=== PATIENT | female | born 1995 | race Caucasian/White ===

== ENCOUNTER 2017-12-11 16:31 | Emergency (ER) | payer SELFPAY ==
[~2017-12-11] VITALS: Ht 170.2 cm; Wt 62.0 kg
[~2017-12-11 16:31] MED LIST: MMW SWISH-SWAL
[2017-12-11 16:35] VITALS: BP 133/62; PULSE 78; RESP 18; TEMP 98.8; O2SAT 98
[2017-12-11] MEDS ORDERED: BENZ100 PO (17:42)
--- NOTE | 2017-12-11 17:43 | PD ---
HPI Chief Complaint: Cold / Flu Symptoms Time Seen by Provider: 17:07 Travel History International Travel<30 days: No Contact w/Intl Traveler<30days: No Traveled to known affect area: No History of Present Illness HPI This is a 22-year-old female here with cough 2 days. No fever chills. Cough is nonproductive. Clear nasal discharge and mild sore throat. She has a niece and nephew at home with similar symptoms. Symptom severity is mild. No aggravating or alleviating factors. PFSH Past Medical History Medical History: Denies Significant Hx Diminished Hearing: No Immunizations Current: Yes (NOT CURRENT) Tetanus Vaccination: Unknown Influenza Vaccination: No ?: Not LMP: 12/02/17 : 0 Social History Alcohol Use: No Tobacco Use: No Substance Use: No Allergies-Medications (Allergen,Severity, Reaction): Coded Allergies: penicillin G (Unverified Allergy, Intermediate, HIVES, 12/11/17) Reported Meds & Prescriptions Reported Meds & Active Scripts Active Magic Mouthwash-Diphenhy Formula (Lidocaine/Diphenhydr/Alum/Mg/Simeth) Ml 15 Ml SWISH-SWAL Q3H MAGIC MOUTHWASH=MIX 1/3 VISCOUS LIDOCAINE(60 ML),1/3 MAALOX(60 ML),AND 1/3BENADRYL(60 ML) TO EQUAL 180 ML TOTAL. Review of Systems Except as stated in HPI: all other systems reviewed are Neg General / Constitutional: No: Fever Eyes: No: Visual changes HENT: Positive: Sore Throat, No: Headaches Cardiovascular: No: Chest Pain or Discomfort Respiratory: Positive: Cough Gastrointestinal: No: Abdominal Pain Genitourinary: No: Dysuria Musculoskeletal: No: Pain Physical Exam Narrative GENERAL: Alert and well-appearing 22-year-old female SKIN: Warm and dry. HEAD: Normocephalic. EYES: No scleral icterus. No injection or drainage. ENT: Clear nasal discharge. No pharyngeal erythema. Uvula is midline. Airways patent. NECK: Supple, trachea midline. No JVD or lymphadenopathy. CARDIOVASCULAR: Regular rate and rhythm without murmurs, gallops, or rubs. RESPIRATORY: Breath sounds equal bilaterally. No accessory muscle use. GASTROINTESTINAL: Abdomen soft, non-tender, nondistended. MUSCULOSKELETAL: No cyanosis, or edema. BACK: Nontender without obvious deformity. No CVA tenderness. Data Data Last Documented VS Vital Signs Date Time Temp Pulse Resp B/P (MAP) Pulse Ox O2 Delivery O2 Flow Rate FiO2 12/11/17 16:35 98.8 78 18 133/62 (85) 98 MDM Medical Decision Making Medical Screen Exam Complete: Yes Emergency Medical Condition: Yes Differential Diagnosis Viral URI, bronchitis, pneumonia Narrative Course 22-year-old female here with mild upper respiratory-like illness. She is nontoxic appearing. Vital signs are stable. Symptomatic treatment discussed. Diagnosis Primary Impression: Viral URI with cough Referrals: Primary Care Physician Departure Forms: Tests/Procedures, Work Release Enter return to work date: Dec 14, 2017 Scripts Benzonatate (Tessalon Perles) 100 Mg Cap 200 MG PO TID Y for COUGH, #12 CAP 0 Refills Prov: Tracy Mcdowell 12/11/17 Disposition: 01 DISCHARGE HOME Condition: Stable Tracy Mcdowell December 11, 2017 17:43
== END 2017-12-11 18:00 | disposition home or self-care (01) ==
LOC: PHEFT 16:31
DX: J06.9 Acute upper respiratory infection, unspecified (principal); Z88.0 Allergy status to penicillin
CPT/HCPCS: 99283